=== PATIENT | female | born 1990 | race African-American/Black ===

== ENCOUNTER 2023-03-20 07:21 | Inpatient (IN) | payer OTHER, SELFPAY ==
[2023-03-20] VITALS (14 sets, daily range): BP systolic 113–141; BP diastolic 62–104; PULSE 56–96; RESP 16–18; TEMP 36.6–36.9; O2SAT 98–100; BMI 35.6
[2023-03-20] MEDS: LACTATED RINGERS 1,000 ML 999 ML IV CONT (07:50)
[2023-03-20] MEDS: OXYTOCIN 30 UNITS/NS 500 ML 30 UNITS/500 ML BAG 999 UNITS IV CONT (07:58)
--- NOTE | 2023-03-20 08:01 | LDADM ---
This patient, Aaron Varghese, was admitted to Labor/Delivery/Recovery 106 on 03/20/23 at 07:21. Plans for labor, pain management and were discussed with patient. Patient/family oriented to hospital policies and general routines including ID bracelet, bed and alarms, visiting hours, pain management, procedures, bathroom and other care routines, personal items, smoking policy, room service/diet and guest tray routines, infant security routines, and visiting hours. Patient/Family are encouraged to report perceived risks to care and to ask questions if they do not understand what they are told or what they should do. See OBIX for further documentation.
--- NOTE | 2023-03-20 08:03 | P.PCNOB_ITS ---
OB - Delivery Note Procedure Delivery date: 03/20/23 Induction method: None Delivery monitor: External FHT and External Uterine Route of delivery: Episiotomy description: None Laceration Description: None Quantitative Blood Loss (ml): 60 Anesthesia type: None Disposition: Floor Narrative: Patient was brought in by ambulance. She was noted to be complete. Rupture membranes reveals clear fluid [place] Baby Date of : 03/20/23 Time of : 07:53 Weeks of gestation at delivery: 39 Infant gender: Male presentation: vertex position: Right Occiput Anterior Placenta delivery description: Spontaneous Cord Vessel Description: 3 Vessels, Nuchal Cord, Loose and Delayed Cord Clamping score one minute: 8 score five minutes: 9
--- NOTE | 2023-03-20 08:04 | PM.IMHP ---
H&P: HPI History of Present Illness Date/Time: 03/20/23 08:04 Chief Complaint: labor at term Narrative: to a 32-year-old 9 para 7 admitted the ambulance completely dilated she states her last menstrual period is due date of 03/28/2023. And the has been uncomplicated. She has had 7 previous vaginal deliveries her group B strep status is known PMF Social History Social History Smoking status: Never smoker Meds Home Medications and Allergies Home Medications Medication Instructions Recorded Confirmed Type No Home Medications 12/15/22 12/15/22 History Allergies Allergy/AdvReac Type Severity Reaction Status Date / Time No Known Allergies Allergy Verified 12/15/22 14:45 Vital Signs Vital Signs - 24 hr 03/20/23 07:45 03/20/23 08:00 Pulse Rate 81 74 Blood Pressure 141/86 H 125/62 Exam Const: General: cooperative, healthy appearing and comfortable Nutritional Appearance: average body habitus Orientation/consciousness: oriented to person, oriented to place and oriented to time Resp: Effort & Inspection: normal respiratory effort Cardio: Rate: regular rate Rhythm: regular rhythm Heart sounds: S1 normal heart sound present and S2 normal heart sound present GI: Inspection: normal to inspection ( gravid uterus) : Speculum Exam - Vagina: normal appearance of the vagina Speculum Exam - Cervix: normal appearance of the cervix ( cervix complete with bulging bag of water. A ROM clear. FHTs reassuring) Assessment and Plan Assessment and plan (1) Term : Code(s): Z34.90 - Encounter for supervision of normal , unspecified, unspecified trimester Status: Acute Plan spontaneous vaginal delivery is imminent
[2023-03-20 08:21] LABS: Basophils Percent Auto 0.2 % (0.2-1.2); Eosinophils Percent Auto 0.2 % (0-4.4); Hematocrit 36.8 % (37.0-47.0); Hemoglobin 11.9 g/dL (12.0-15.0); Immature Granulocyte Absolute 0.05 K/mm3 (0.00-0.031); Immature Granulocyte Percent A 0.4 % (0-0.5); Lymphocytes Absolute Auto 2.04 K/mm3 (0.9-3.2); Lymphocytes Percent Auto 16.6 % (18.3-44.2); Mean Corpuscular HGB Conc 32.3 g/dl (32-36); Mean Corpuscular Volume 83.6 fl (80-100); Mean Platelet Volume 11.9 fl (7.4-10.4); Monocytes Absolute Auto 0.6 K/mm3 (0.1-0.6); Monocytes Percent Auto 4.5 % (2.6-8.5); Neutrophils Absolute Auto 9.6 K/mm3 (1.3-6.7); Neutrophils Percent Auto 78.1 % (45.5-73.1); Platelet Count Result 217 k/mm3 (150-375); Red Cell Distribution Width 16.1 % (11.5-14.5); White Blood Count 12.3 K/mm3 (4.5-10.0)
[2023-03-20] MEDS: OXYTOCIN 30 UNITS/NS 500 ML 30 UNITS/500 ML BAG 125 UNITS IV CONT (08:33)
[2023-03-20 09:20] LABS: HIV 1/2 Ab P24 Ag Result Negative (Negative)
[2023-03-20 09:38] LABS: Rubella IgG Antibody 39.5 IU/ML
[2023-03-20 09:39] LABS: Hepatitis B Surface Antigen Negative (Negative)
--- NOTE | 2023-03-20 10:13 | OBPPTRN ---
Patient transferred to post room #287 via wheelchair. Oriented to unit, room, information board, rooming in, admission packet and security measures. Patient verbalizes understanding.
[2023-03-20 11:07] LABS: Amphetamine Screen Urine Negative (Negative); Barbiturate Screen Urine Negative (Negative); Benzodiazepines Screen Urine Negative (Negative); Cannabinoid Screen Urine Negative (Negative); Cocaine Screen Urine Negative (Negative); Methadone Screen Urine Negative (Negative); Opiate Screen Urine Negative (Negative); Phencyclidine Screen Urine Negative (Negative)
--- NOTE | 2023-03-20 14:43 | PCCCNOTE ---
Care Coordination met with pt. this afternoon to discuss discharge planning. Pt. and her family recently moved to [place] from [place]. Pt. states her brother and sister live in this area and she wanted to move to be close with family. This baby is pt.'s 8th child, she states her children live with her and FOB in [place]. Pt. states she has everything needed to safely bring baby home. She has a car seat at home as well, pt. took ambulance to hospital so FOB will bring car seat at time of D/C. Pt. has not established with a provider for her or her children. CC provided pt. with a list of doctors accepting new pts. Pt's RN has also supplied pt. with resources for local pediatricians and WIC. Pt. states she will breast feed and bottle feed baby as needed. Pt. denies any further needs or concerns. She does not have any open or closed DCFS cases and she tested negative with her urine drug screen at admission. CC supplied pt. with basket. Will follow.
[2023-03-20] MEDS: DOCUSATE SODIUM 100 MG CAPSULE PO (17:04)
[2023-03-20] MEDS: IBUPROFEN 600 MG TABLET PO (20:03)
[2023-03-21 04:41] LABS: Hematocrit 29.5 % (37.0-47.0); Hemoglobin 9.6 g/dL (12.0-15.0)
--- NOTE | 2023-03-21 06:24 | PM.DS ---
DS: Admitting Diagnosis Discharge Date 03/02/2007/14/2023 Admitting Diagnosis term with no care DS: Discharge Diagnosis Discharge Diagnosis (1) Term : Code(s): Z34.90 - Encounter for supervision of normal , unspecified, unspecified trimester Status: Acute DS: Summary Hospital Course Reason for hospitalization: active labor at term Hospital Course: a 32-year-old 9 now para 8 who was admitted in active labor via ambulance. Her healthcare admitted in [place] and that was not available upon admission. She underwent a rapid spontaneous vaginal delivery. Her hospital course was unremarkable. She remained afebrile. She was up, voiding without difficulty, eating regular diet, and generally without complaints. Time Spent with Patient Time attestation: Total time spent providing and/or coordinating discharge services: Exam Const: General: cooperative, healthy appearing and comfortable Nutritional Appearance: average body habitus Orientation/consciousness: oriented to person, oriented to place and oriented to time HENMT: Head: normal to inspection Resp: Effort & Inspection: normal respiratory effort Cardio: Rate: regular rate Rhythm: regular rhythm Heart sounds: S1 normal heart sound present and S2 normal heart sound present GI: Inspection: normal to inspection ( Fundus firm below the umbilicus) DS: Data Data Completed and Pending Labs on day of discharge: Labs from last 24 hours 03/21/23 03/20/23 03/20/23 04:19 10:48 10:10 WBC RBC Hgb 9.6 L Hct 29.5 L MCV MCH MCHC RDW Plt Count MPV Immature Gran % (Auto) Neut % (Auto) Lymph % (Auto) [place] % (Auto) Eos % (Auto) Baso % (Auto) Lymph # (Auto) [place] # (Auto) Eos # (Auto) Baso # (Auto) Abs Immat Gran (auto) Absolute Neuts (auto) Absolute Nucleated RBC Nucleated RBC % Urine Opiates Screen Negative Urine Methadone Screen Negative Ur Barbiturates Screen Negative Ur Phencyclidine Scrn Negative Ur Amphetamine Screen Negative U Benzodiazepines Scrn Negative Urine Cocaine Screen Negative U Cannabinoids Screen Negative RPR Pending Hep Bs Antigen HIV 1&2 Ab/P24 Ag 4thGn Rubella IgG Antibody Blood Type Antibody Screen 03/20/23 07:39 WBC 12.3 H RBC 4.40 Hgb 11.9 L Hct 36.8 L MCV 83.6 MCH 27.0 MCHC 32.3 RDW 16.1 H Plt Count 217 MPV 11.9 H Immature Gran % (Auto) 0.4 Neut % (Auto) 78.1 H Lymph % (Auto) 16.6 L [place] % (Auto) 4.5 Eos % (Auto) 0.2 Baso % (Auto) 0.2 Lymph # (Auto) 2.04 [place] # (Auto) 0.6 Eos # (Auto) 0.0 Baso # (Auto) 0.0 Abs Immat Gran (auto) 0.05 H Absolute Neuts (auto) 9.6 H Absolute Nucleated RBC 0.0 Nucleated RBC % 0.0 Urine Opiates Screen Urine Methadone Screen Ur Barbiturates Screen Ur Phencyclidine Scrn Ur Amphetamine Screen U Benzodiazepines Scrn Urine Cocaine Screen U Cannabinoids Screen RPR Hep Bs Antigen Negative HIV 1&2 Ab/P24 Ag 4thGn Negative Rubella IgG Antibody 39.5 Blood Type AB Positive Antibody Screen Negative Discharge Plan Discharge Attending physician on discharge: Napoleon Antony Discharging Clinician: Napoleon Antony Patient Disposition: Home, Self-Care Activity: may shower, no straining and pelvic rest Diet: heart healthy Wound Care Instructions: follow printed instructions Patient Instructions: Antibiotic Form Stand Alone Forms: General Discharge Information Follow-up/Referrals: Napoleon Antony MD [Physician] - Discharge Medications: Continued ferrous sulfate 325 mg (65 mg iron) Tablet 325 mg PO DAILY Date of admission: 03/20/23 07:21 Primary Care Provider: Gladis Osuna Admitting Provider: Napoleon Antony Attending physician on admission: Napoleon Antony Condition: Stable
--- NOTE | 2023-03-21 06:26 | PM.OBPNVD ---
OB - PN: Subj Subjective Date/time seen: 03/21/23 06:26 Patient comments: no complaints and pain well controlled baby status: doing well OB - PN: Obj Data Labs 03/21/23 04:19 Labs: Laboratory Results - last 24 hr 03/20/23 03/20/23 03/21/23 07:39 10:10 04:19 WBC 12.3 H RBC 4.40 Hgb 11.9 L 9.6 L Hct 36.8 L 29.5 L MCV 83.6 MCH 27.0 MCHC 32.3 RDW 16.1 H Plt Count 217 MPV 11.9 H Immature Gran % (Auto) 0.4 Neut % (Auto) 78.1 H Lymph % (Auto) 16.6 L [place] % (Auto) 4.5 Eos % (Auto) 0.2 Baso % (Auto) 0.2 Lymph # (Auto) 2.04 [place] # (Auto) 0.6 Eos # (Auto) 0.0 Baso # (Auto) 0.0 Abs Immat Gran (auto) 0.05 H Absolute Neuts (auto) 9.6 H Absolute Nucleated RBC 0.0 Nucleated RBC % 0.0 Urine Opiates Screen Negative Urine Methadone Screen Negative Ur Barbiturates Screen Negative Ur Phencyclidine Scrn Negative Ur Amphetamine Screen Negative U Benzodiazepines Scrn Negative Urine Cocaine Screen Negative U Cannabinoids Screen Negative Hep Bs Antigen Negative HIV 1&2 Ab/P24 Ag 4thGn Negative Rubella IgG Antibody 39.5 Blood Type AB Positive Antibody Screen Negative OB - PN A/P Plan day: 1 Plan: routine care Time Spent With Patient Time: Total time spent is greater than 50% in coordination of care (as documented) at patient's floor/unit and/or counseling patient: Time with patient: less than 15 minutes Exam Const: General: cooperative, healthy appearing and comfortable Nutritional Appearance: average body habitus Orientation/consciousness: oriented to person, oriented to place and oriented to time HENMT: Head: normal to inspection Resp: Effort & Inspection: normal respiratory effort Cardio: Rate: regular rate Rhythm: regular rhythm Heart sounds: S1 normal heart sound present and S2 normal heart sound present GI: Inspection: normal to inspection ( fundus firm below the umbilicus)
[2023-03-21 07:30] VITALS: BP 136/90; PULSE 82; RESP 16; TEMP 36.6; O2SAT 100
[2023-03-21] MEDS: MULTIVIT/MIN/PREN/FOL AC/IRON TABLET 1 TAB PO (09:50)
[2023-03-21] MEDS: POLYSACCHARIDE IRON COMPLEX 150 MG CAPSULE PO ×2 (09:50→17:32)
[2023-03-21] MEDS: DOCUSATE SODIUM 100 MG CAPSULE PO ×2 (09:50→17:32)
[2023-03-21 20:55] VITALS: BP 141/97; PULSE 64; RESP 16; TEMP 36.6; O2SAT 100
[2023-03-21] MEDS: IBUPROFEN 600 MG TABLET PO (21:13)
[2023-03-21 22:00] VITALS: BP 152/89
--- NOTE | 2023-03-22 06:37 | PM.OBPNVD ---
OB - PN: Subj Subjective Date/time seen: 03/22/23 06:37 Patient comments: no complaints and pain well controlled baby status: doing well and nursing well OB - PN: Obj Data Labs 03/21/23 04:19 OB - PN A/P Plan Plan: routine care, discharge home and follow up 6 weeks Time Spent With Patient Time: Total time spent is greater than 50% in coordination of care (as documented) at patient's floor/unit and/or counseling patient: Time with patient: less than 15 minutes Exam Const: General: cooperative, healthy appearing and comfortable Orientation/consciousness: oriented to person, oriented to place and oriented to time Resp: Effort & Inspection: normal respiratory effort Cardio: Rate: regular rate Rhythm: regular rhythm Heart sounds: S1 normal heart sound present and S2 normal heart sound present GI: Inspection: normal to inspection
[2023-03-22 08:45] VITALS: BP 134/84; PULSE 69; RESP 16; TEMP 36.9; O2SAT 100
[2023-03-22] MEDS: MULTIVIT/MIN/PREN/FOL AC/IRON TABLET 1 TAB PO (09:50)
[2023-03-22] MEDS: IBUPROFEN 600 MG TABLET PO (09:50)
[2023-03-22] MEDS: DOCUSATE SODIUM 100 MG CAPSULE PO (09:50)
[2023-03-22] MEDS: POLYSACCHARIDE IRON COMPLEX 150 MG CAPSULE PO (09:50)
[2023-03-22 11:48] LABS: Rapid Plasma Reagin Non-Reactive (NonReactive)
== END 2023-03-22 10:35 | disposition home or self-care (01) | DRG 560 ==
LOC: ANHLDR 07:49 → ANHOB2 10:15
PROVIDERS: Admitting Provider Obstetrics & Gynecology; PCP Nurse Practitioner Family; Visit Provider Obstetrics & Gynecology
DX: O69.2XX0 Labor and delivery complicated by other cord entanglement, with compression, not applicable or unspecified (principal); Z37.0 Single live birth; Z3A.39 39 weeks gestation of pregnancy
CPT/HCPCS: 36415; 80307; 85014; 85018; 85025; 86592; 86703; 86762; 86850; 86900; 86901; 87340; A9270; G0432; J2590; J7120

== ENCOUNTER 2023-05-29 16:15 | Emergency (ER) | payer OTHER, SELFPAY ==
[2023-05-29 16:21] VITALS: BP 152/108; PULSE 104; RESP 17; TEMP 36.3; O2SAT 98
[2023-05-29 16:23] VITALS: BP 152/108; PULSE 104; RESP 24; TEMP 36.3; O2SAT 98
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
[2023-05-29 18:20] VITALS: BP 143/95; PULSE 86; RESP 18; TEMP 36.9; O2SAT 100
== END 2023-05-29 18:20 | disposition home or self-care (01) ==
PROVIDERS: Emergency Provider Internal Medicine Critical Care Medicine; PCP Nurse Practitioner Family
DX: S80.811A Abrasion, right lower leg, initial encounter (principal); M25.59 Pain in other specified joint; V59.40XA Driver of pick-up truck or van injured in collision with unspecified motor vehicles in traffic accident, initial encounter; Y92.411 Interstate highway as the place of occurrence of the external cause
CPT/HCPCS: 99282

== ENCOUNTER 2024-04-22 16:34 | Emergency (ER) | payer OTHER, SELFPAY ==
[2024-04-22] VITALS (16 sets, daily range): BP systolic 136–157; BP diastolic 96–107; PULSE 79–112; RESP 12–22; TEMP 37; O2SAT 97–100
--- NOTE | ~2024-04-22 | CT_ITS ---
EXAMINATION: CT brain wo con DATE: 04/22/2024 17:49 INDICATION: Frontal headache. Left arm numbness. TECHNIQUE: Computed tomography (CT) of the head was performed without intravenous contrast. The mA wa s adjusted according to patient size. Iterative reconstruction technique was employed. The dose-lengt h product was 605.33 mGy-cm. COMPARISON: None FINDINGS: There is no intracranial hemorrhage, acute infarction, or abnormal intracranial mass lesion . The ventricles are normal in size. The orbits are normal. The paranasal sinuses are clear. The mast oid air cells are normal. IMPRESSION: 1. Normal brain. Reviewed, dictated and finalized at location E. IMPRESSION: 1. Normal brain.
--- NOTE | 2024-04-22 16:42 | ECG_ITS ---
Test Date: 2024-04-22 16:44:51 Measurements Intervals [place] Rate: 95 P: 60 [place]: 159 QRS: 24 QRSD: 89 T: 41 QT: 335 QTc: 422 Interpretive Statements SINUS RHYTHM POSSIBLE LEFT ATRIAL ENLARGEMENT BORDERLINE ECG No previous ECG available for comparison Electronically Signed On 04-24-2024 06:10:41 CDT by Ike Ron D.O.
--- NOTE | 2024-04-22 16:48 | ED.CHESTPAIN ---
HPI - Chest Pain General Chief Complaint: Chest Pain Stated Complaint: headache and left arm numbness Time Seen by Provider: 04/22/24 16:47 History of Present Illness HPI narrative: 34-year-old female patient otherwise healthy is here with complaints of experiencing some tingling in the left arm and also having some pressure in the chest area and left arm area with some headache which is diffuse and mild prior to arrival here. she states that she was bent down to shrimp picker some stuff from the floor and when she straightened herself up she felt a little dizzy but did not pass out. She does admits to being under stress. She did not experience any weakness on 1 side or the other. She did not report any speech difficulty or any problems processing her thoughts. Denies any trouble with her vision. Patient is recently started phentermine for weight loss. She also has 8 children between ages 1 year to 16 years without any adult partner help. She states that she works 2 jobs, 1 at night at the [place] [facility] and 1 during the daytime and is apparently planning to start school on Wednesday. Related Data Home Medications Medication Instructions Recorded Confirmed ferrous sulfate 325 mg (65 mg 325 mg PO DAILY 03/20/23 05/29/23 iron) tablet Allergies Allergy/AdvReac Type Severity Reaction Status Date / Time No Known Allergies Allergy Verified 05/29/23 16:20 Review of Systems Review of Systems: All systems reviewed & are unremarkable except as noted in HPI and below PMFSH Social History Social History Smoking status: Never smoker Second hand tobacco smoke exposure: No Substance use: never Lack of Transportation: No Lack of Food: Never True Current Housing: I Have Housing Concerned About Future Housing: No Difficulty Paying Gas/Electric Bills: No Difficulty Paying for Meds: No Currently Unemployed: No Education: High School Diploma/GED Difficulty w/ Childcare or Family Care: No Spiritual care concerns: No Exam Narrative: Alert female patient who appears in no acute distress. Her vital signs are stable. HEENT is unremarkable. Head is nontender. Pupils are midsize equal and reactive to light. EOMs are intact. Ear nose throat appear normal. Neck is supple. No midline tenderness . No chest wall tenderness. Clear breath sounds bilaterally. Heart tones are regular. Abdomen is benign. Extremities are atraumatic. No pedaledema. Patient is alert and oriented x4. her gait is steady. Speech is normal. Motor and sensory is intact. Cranial nerves are intact. Her NIH score is 0 Mood and affect are normal. Course Vital Signs Vital signs: Vital Signs Temperature 37.0 C 04/22/24 16:34 Pulse Rate 112 H 04/22/24 16:34 Respiratory Rate 18 04/22/24 16:34 Blood Pressure 157/107 H 04/22/24 16:34 Pulse Oximetry 98 04/22/24 16:34 Oxygen Delivery Room Air 04/22/24 16:34 Temperature 37.0 C 04/22/24 16:34 Pulse Rate 93 04/22/24 18:15 Respiratory Rate 22 H 04/22/24 18:15 Blood Pressure 136/101 H 04/22/24 18:15 Pulse Oximetry 99 04/22/24 18:15 Oxygen Delivery Room Air 04/22/24 18:15 MDM - Chest Pain MDM Narrative Medical decision making narrative: 34-year-old female patient with vague symptoms of headache and tingling of the left arm as well as chest pressure under stress currently and has started phentermine lately has a negative physical examination with exception of blood pressure being slightly elevated. CT of the head is reported as negative. EKG shows normal sinus rhythm. Cardiac enzymes are normal. Renal function is normal. Patient does have mild hypokalemia which will be corrected here. She is feeling better with the exception of slight headache that is frontal Will treat to the headache with a ketorolac. Patient is aware of the discharge plans. I did discuss the use of phentermin
[2024-04-22 17:27] LABS: Bilirubin Urine 1+ (Negative); Blood Urine Negative (Negative); Color Urine Yellow (Yellow); Glucose Urine UA Negative (Negative); Ketones Urine Trace (Negative); Leukocyte Esterase Ur Negative LEU/UL (Negative); Nitrate Urine Negative (Negative); Protein Urine Trace (Negative); Specific Grav Ur 1.015 (1.010-1.020); pH Urine 7.5 (5.0-8.0)
[2024-04-22 17:32] LABS: Pregnancy On Board Control Positive; Urine Pregnancy Test Negative
[2024-04-22 17:46] LABS: Add Urine Microscopic? YES; Amorphous Sediment Urine Heavy; Appearance Urine Cloudy (Clear); Bacteria Urine 2+ /hpf; Squamous Epithelial Cell Urine Many /hpf (Few)
[2024-04-22 17:47] LABS: Hyaline Casts Urine 15-19 /lpf; Mucus Urine Heavy /lpf
[2024-04-22 18:11] LABS: Basophils Absolute Auto 0.04 K/mm3 (0.00-0.10); Basophils Percent Auto 0.5 % (0.0-1.0); Eosinophils Absolute Auto 0.08 K/mm3 (0.02-0.50); Eosinophils Percent Auto 1.1 % (1.0-6.0); Hematocrit 38.8 % (35.0-49.0); Hemoglobin 12.7 g/dL (12.0-15.0); Immature Granulocyte Absolute 0.01 K/mm3 (0.00-0.00); Immature Granulocyte Percent A 0.1 % (0.0-0.0); Lymphocytes Absolute Auto 1.73 K/mm3 (1.10-4.50); Lymphocytes Percent Auto 23.1 % (18.0-42.0); Mean Corpuscular HGB Conc 32.7 g/dL (32-36); Mean Corpuscular Hemoglobin 28.4 pg (27.0-31.0); Mean Corpuscular Volume 86.8 fL (78.0-102.0); Monocytes Absolute Auto 0.41 K/mm3 (0.10-0.90); Monocytes Percent Auto 5.5 % (2.0-11.0); Neutrophils Absolute Auto 5.21 K/mm3 (1.70-7.20); Neutrophils Percent Auto 69.7 % (50.0-70.0); Platelet Count Result 254 K/mm3 (150-420); Red Blood Count 4.47 M/mm3 (4.20-5.40); Red Cell Distribution Width 14.2 % (11.6-14.4); White Blood Count 7.5 K/mm3 (4.8-10.8)
[2024-04-22 18:34] LABS: Alanine Aminotransferase 27 U/L (14-59); Albumin Level 3.8 g/dL (3.4-5.0); Alkaline Phosphatase 87 U/L (46-116); Anion Gap 12 mmol/L (4-12); Aspartate Amino Transferase 15 U/L (15-37); Bilirubin,Total 1.1 mg/dL (0.00-1.00); Blood Urea Nitrogen 6 mg/dL (7-18); Carbon Dioxide 25 mmol/L (21-32); Chloride 101 mmol/L (98-108); Creatine Kinase 108 U/L (26-192); Estimated CRCL calculation 113 ml/min; Estimated Glomerular Filt Rate > 60; Glucose 90 mg/dL (70-99); Osmolality Calculated 283 mOsm/kg (285-295); Potassium 3.2 mmol/L (3.5-5.1); Sodium 138 mmol/L (136-145); Total Protein 7.6 g/dL (6.4-8.2)
[2024-04-22 18:40] LABS: Troponin I < 4.0 ng/L (0.00-60.4)
[2024-04-22] MEDS: POTASSIUM BICARBONATE 25 MEQ TABEF PO (19:00)
--- NOTE | 2024-04-22 19:00 | PC.NURSE ---
assumed care. report received from Osiel DANIEL. Osiel DANIEL currently at the bedside giving medications per MAR
[2024-04-22] MEDS: KETOROLAC (*BKC) 60 MG/2 ML VIAL IM (19:01)
== END 2024-04-22 19:12 | disposition home or self-care (01) ==
PROVIDERS: Emergency Provider Emergency Medicine; PCP Family Medicine
DX: R51.9 Headache, unspecified (principal); F41.9 Anxiety disorder, unspecified; F43.9 Reaction to severe stress, unspecified
CPT/HCPCS: 36415; 70450; 80053; 81001; 81025; 82550; 82553; 84484; 85025; 93005; 96372; 99284; A9270; J1885